=== PATIENT | female | born 1995 | race Caucasian/White ===

== ENCOUNTER 2019-01-22 18:34 | Emergency (ER) | payer SELFPAY ==
[~2019-01-22] VITALS: Ht 177.8 cm; Wt 135.5 kg
[2019-01-22] MEDS ORDERED: LACTATED RINGERS 1,000 ML IV ONE (19:24)
[2019-01-22] MEDS ORDERED: hydrALAZINE (APESOLINE) 20 MG/ML VIAL IV ONE ×2 (19:30→19:45)
[2019-01-22] MEDS ORDERED: meTOprolol TARTRATE 50 MG (LOPRESSOR) TAB PO ONE (19:30)
[2019-01-22 19:35] LABS: BASOPHILS # (AUTO) 0.1 10^3/uL (0.0-0.1); BASOPHILS % (AUTO) 1 % (0-10); EOSINOPHILS # (AUTO) 0.1 10^3/uL (0.0-0.3); EOSINOPHILS % (AUTO) 1 % (0-10); HEMATOCRIT 43 % (35-52); HEMOGLOBIN 14.1 G/DL (11.5-16.0); LYMPHOCYTES # (AUTO) 2.8 X 10^3 (1.0-4.0); LYMPHOCYTES % (AUTO) 27 % (12-44); MEAN CORPUSCULAR HEMOGLOBIN 26 PG (25-34); MEAN CORPUSCULAR HGB CONC 33 G/DL (32-36); MEAN CORPUSCULAR VOLUME 79 FL (80-99); MEAN PLATELET VOLUME 10.4 FL (7.4-10.4); MONOCYTES # (AUTO) 0.8 X 10^3 (0.0-1.0); MONOCYTES % (AUTO) 8 % (0-12); NEUTROPHILS # (AUTO) 6.5 X 10^3 (1.8-7.8); NEUTROPHILS % (AUTO) 63 % (42-75); PLATELET COUNT 258 10^3/uL (130-400); RED CELL DISTRIBUTION WIDTH 12.9 % (10.0-14.5); WHITE BLOOD COUNT 10.3 10^3/uL (4.3-11.0)
[2019-01-22 19:36] LABS: BILIRUBIN,URINE NEGATIVE (NEGATIVE); CLARITY,URINE CLEAR; COLOR,URINE YELLOW; GLUCOSE, URINE (UA) NEGATIVE (NEGATIVE); KETONES,URINE NEGATIVE (NEGATIVE); LEUKOCYTE ESTERASE ,URINE NEGATIVE (NEGATIVE); NITRITE,URINE NEGATIVE (NEGATIVE); PROTEIN,URINE NEGATIVE (NEGATIVE)
[2019-01-22] MEDS ORDERED: meTOprolol TARTRATE 25 MG (LOPRESSOR) TABLET ONE (19:38)
[2019-01-22 19:39] LABS: BACTERIA,URINE FEW /HPF; RBC,URINE 25-50 /HPF; WBC,URINE 0-2 /HPF
--- NOTE | 2019-01-22 19:40 | ED General ---
General Chief Complaint: Dizziness/Syncope Stated Complaint: WEAKNESS, DIZZINESS Nursing Triage Note: Patient states that she has been ahving dry mouth for about a week and dizziness for the last couple of days. Patient states that it feels like she is "drunk". Nursing Sepsis Screen: No Definite Risk Source of Information: Patient Exam Limitations: No Limitations History of Present Illness Date Seen by Provider: Jan 22, 2019 Time Seen by Provider: 19:19 Initial Comments Here with report of feeling dizzy with dry mouth for the last couple of days. States that she feels off like she is drunk but she does not drink. Reports increased fluid intake and increased urination. She is worried about diabetes as that runs in her family. Has had history of high blood pressure in the past and was on medicines but they stopped that about a year ago when she was getting too low on her blood pressure. Denies nausea, vomiting, chest pain or breathing problems. Denies upper respiratory infection or dysuria. Timing/Duration: 1 Week, Getting Worse Severity: Moderate Associated Systoms: No Chest Pain, No Cough, No Diaphoresis, No Fever/Chills, No Nausea/Vomiting, No Shortness of Air Allergies and Home Medications Allergies Coded Allergies: aspirin (Verified Allergy, Unknown, 01/22/19) Patient Home Medication List Home Medication List Reviewed: Yes Review of Systems Review of Systems Constitutional: see HPI; No chills, No fever EENTM: no symptoms reported Respiratory: No cough, No short of breath Cardiovascular: No chest pain, No edema Gastrointestinal: No abdominal pain, No nausea, No vomiting Genitourinary: No dysuria; frequency; No pain Musculoskeletal: no symptoms reported Skin: no symptoms reported Psychiatric/Neurological: No Symptoms Reported All Other Systems Reviewed Negative Unless Noted: Yes Past Kvdonjn-Lydmdb-Lhfjsf Hx Past Med/Social Hx: Reviewed Nursing Past Med/Soc Hx Patient Social History Alcohol Use: Denies Use Recreational Drug Use: No Smoking Status: Never a Smoker Recent Foreign Travel: No Contact w/Someone Who Travel: No Recent Infectious Disease Expo: No Recent Hopitalizations: No Physical Abuse: No Sexual Abuse: No Mistreated: No Fear: No Seasonal Allergies Seasonal Allergies: No Past Medical History Surgeries: No Respiratory: No Cardiac: Yes Hypertension Neurological: Yes Headaches /Migraines Genitourinary: No Gastrointestinal: No Musculoskeletal: No Endocrine: No HEENT: No Cancer: No Psychosocial: No Integumentary: No Family Medical History Reviewed Nursing Family Hx Diabetes Physical Exam Vital Signs Vital Signs - First Documented 01/22/19 18:42 Temp 36.6 Pulse 103 Resp 22 B/P (MAP) 173/132 (146) Pulse Ox 98 O2 Delivery Room Air Capillary Refill : Less Than 3 Seconds Height, Weight, BMI Height: '" Weight: lbs. oz. kg; 42.00 BMI Method: General Appearance: No Apparent Distress, WD/WN HEENT: PERRL/EOMI, Pharynx Normal Neck: Non Tender, Supple Respiratory: Lungs Clear, Normal Breath Sounds Cardiovascular: No Murmur, Tachycardia Gastrointestinal: Non Tender, Soft Back: Normal Inspection, No CVA Tenderness, No Vertebral Tenderness Extremity: Normal Inspection, Normal Range of Motion, Non Tender, No Calf Tenderness Neurologic/Psychiatric: Alert, Oriented x3, No Motor/Sensory Deficits Skin: Normal Color, Warm/Dry Progress/Results/Core Measures Suspected Sepsis Recent Fever Within 48 Hours: No Infection Criteria Present: None New/Unexplained Altered Menta: No Sepsis Screen: No Definite Risk SIRS Temperature: Pulse: 103 Respiratory Rate: 22 Laboratory Tests 01/22/19 19:05: White Blood Count 10.3 Blood Pressure 173 /132 Mean: 146 Laboratory Tests 01/22/19 19:05: Creatinine 0.81, Platelet Count 258, Total Bilirubin 0.2 Results/Orders Lab Results Laboratory Tests Test 01/22/19 18:46 01/22/19 19:05 Range/Units Urine Color YELLOW Urine Clarity CLEAR Urine pH 6.0 5-9 Urine Specific [place] 1.020 1.016-1.022 Urine Protein NEGATIVE NEGATIVE Urine Glucose (UA) NEGATIVE NEGATIVE Urine Ketones NEGATIVE NEGATIVE Urine Nitrite NEGATIVE NEGATIVE Urine Bilirubin NEGATIVE NEGATIVE Urine Urobilinogen 0.2 < = 1.0 MG/DL Urine Leukocyte Esterase NEGATIVE NEGATIVE Urine RBC (Auto) 2+ H NEGATIVE Urine RBC 25-50 H /HPF Urine WBC 0-2 /HPF Urine Squamous Epithelial Cells 10-25 H /HPF Urine Crystals NONE /LPF Urine Bacteria FEW H /HPF Urine Casts NONE /LPF Urine Mucus SMALL H /LPF Urine Culture Indicated NO White Blood Count 10.3 4.3-11.0 10^3/uL Red Blood Count 5.44 4.35-5.85 10^6/uL Hemoglobin 14.1 11.5-16.0 G/DL Hematocrit 43 35-52 % Mean Corpuscular Volume 79 L 80-99 FL Mean Corpuscular Hemoglobin 26 25-34 PG Mean Corpuscular Hemoglobin Concent 33 32-36 G/DL Red Cell Distribution Width 12.9 10.0-14.5 % Platelet Count 258 130-400 10^3/uL Mean Platelet Volume 10.4 7.4-10.4 FL Neutrophils (%) (Auto) 63 42-75 % Lymphocytes (%) (Auto) 27 12-44 % Monocytes (%) (Auto) 8 0-12 % Eosinophils (%) (Auto) 1 0-10 % Basophils (%) (Auto) 1 0-10 % Neutrophils # (Auto) 6.5 1.8-7.8 X 10^3 Lymphocytes # (Auto) 2.8 1.0-4.0 X 10^3 Monocytes # (Auto) 0.8 0.0-1.0 X 10^3 Eosinophils # (Auto) 0.1 0.0-0.3 10^3/uL Basophils # (Auto) 0.1 0.0-0.1 10^3/uL Sodium Level 140 135-145 MMOL/L Potassium Level 3.8 3.6-5.0 MMOL/L Chloride Level 102 98-107 MMOL/L Carbon Dioxide Level 26 21-32 MMOL/L Anion Gap 12 5-14 MMOL/L Blood Urea Nitrogen 11 7-18 MG/DL Creatinine 0.81 0.60-1.30 MG/DL Estimat Glomerular Filtration Rate > 60 BUN/Creatinine Ratio 14 Glucose Level 103 70-105 MG/DL Calcium Level 9.4 8.5-10.1 MG/DL Corrected Calcium 9.1 8.5-10.1 MG/DL Magnesium Level 1.8 1.6-2.4 MG/DL Total Bilirubin 0.2 0.1-1.0 MG/DL Aspartate Amino Transf (AST/SGOT) 21 5-34 U/L Alanine Aminotransferase (ALT/SGPT) 20 0-55 U/L Alkaline Phosphatase 53 40-136 U/L Total Protein 7.7 6.4-8.2 GM/DL Albumin 4.4 3.2-4.5 GM/DL My Orders Orders - SHADI CARRERA MD Cbc With Automated Diff (01/22/19 19:24) Comprehensive Metabolic Panel (01/22/19 19:24) Magnesium (01/22/19 19:24) Ua Culture If Indicated (01/22/19 19:24) Ed Iv/Invasive Line Start (01/22/19 19:24) Ekg Tracing (01/22/19 19:24) Urine Bedside (01/22/19 19:24) Lactated Ringers (Lr 1000 Ml Iv Solution (01/22/19 19:24) Metoprolol Tartrate (Ir) Tab (Lopressor (01/22/19 19:45) Metoprolol Tartrate (Ir) Tab (Lopressor (01/22/19 19:38) Hydralazine Injection (Apresoline Inject (01/22/19 19:45) Acetaminophen Tablet (Tylenol Tablet) (01/22/19 20:49) Medications Given in ED Current Medications Medications Dose Ordered Sig/Mendel Route Start Time Stop Time Status Last Admin Dose Admin Hydralazine HCl 10 mg ONCE ONCE IV 01/22/19 19:45 01/22/19 19:46 DC 01/22/19 19:46 10 MG Lactated Ringer's 1,000 ml @ 0 mls/hr Q0M ONCE IV 01/22/19 19:24 01/22/19 19:27 DC 01/22/19 19:43 999 MLS/HR Metoprolol Tartrate 50 mg ONCE ONCE PO 01/22/19 19:45 01/22/19 19:46 DC 01/22/19 19:43 50 MG Vital Signs/I&O 01/22/19 18:42 Temp 36.6 Pulse 103 Resp 22 B/P (MAP) 173/132 (146) Pulse Ox 98 O2 Delivery Room Air Capillary Refill : Less Than 3 Seconds Blood Pressure Mean: 146 POS Progress Note : Progress Note Seen and evaluated. IV, labs, EKG, UA and UCG ordered. Metoprolol 50 mg by mouth ordered. Hydralazine 10 mg IV and LR 1 L bolus. Monitor patient. 2044: Heart rate has declined to the 80s. Blood pressure is trending down. Patient no longer has the dizzy feeling. She does have mild headache. Tylenol 1 g by mouth given. Monitor patient. ECG Initial ECG Impression Date: Jan 22, 2019 Initial ECG Impression Time: 19:29 Initial ECG Rate: 94 Initial ECG Rhythm: Normal Sinus Initial ECG Comparisson: No Previous ECG Available Comment Sinus rhythm with left atrial abdomen mildly. No evidence of ST elevation [place]. No previous available for comparison. Interpreted by me. Departure Impression Primary Impression: Uncontrolled hypertension Disposition: HOME, SELF-CARE Condition: Improved Departure-Patient Inst. Decision time for Depature: 21:15 Referrals: [facility] (PCP) Primary Care Physician RAFAEL ZABALA (Family) Primary Care Physician Patient Instructions: High Blood Pressure (DC) Add. Discharge Instructions: All discharge instructions reviewed with patient and/or family. Voiced understanding. Take medications as directed. Follow up with your doctor on Saturday or Saturday for recheck and further evaluation. Return for worse pain, fever, vomiting, weakness, breathing problems or other concerns as needed. Scripts Metoprolol Tartrate (Metoprolol Tartrate) 50 Mg Tablet 50 MG PO BID, #30 TAB 0 Refills Prov: SHADI CARRERA MD 01/22/19 SHADI CARRERA MD Jan 22, 2019 19:40 POS
[2019-01-22] MEDS ORDERED: meTOprolol TARTRATE 25 MG (LOPRESSOR) TABLET PO ONE (19:45)
[2019-01-22 19:48] LABS: BUN/CREATININE RATIO 14; CALCIUM 9.4 MG/DL (8.5-10.1); CARBON DIOXIDE 26 MMOL/L (21-32); CHLORIDE 102 MMOL/L (98-107); CREATININE SERUM 0.81 MG/DL (0.60-1.30); GFR ESTIMATED > 60; GLUCOSE 103 MG/DL (70-105); POTASSIUM 3.8 MMOL/L (3.6-5.0); SODIUM 140 MMOL/L (135-145)
[2019-01-22 19:49] LABS: ALANINE AMINOTRANSFERASE 20 U/L (0-55); ALBUMIN 4.4 GM/DL (3.2-4.5); ALKALINE PHOSPHATASE 53 U/L (40-136); BILIRUBIN,TOTAL 0.2 MG/DL (0.1-1.0); MAGNESIUM 1.8 MG/DL (1.6-2.4); TOTAL PROTEIN 7.7 GM/DL (6.4-8.2)
[2019-01-22] MEDS ORDERED: ACETAMINOPHEN 500 MG TAB (TYLENOL) PO STA (20:49)
[2019-01-22] MEDS ORDERED: METO50TA15 PO (21:21)
[2019-01-22 21:29] VITALS: BP 144/91
== END 2019-01-22 21:29 | disposition home or self-care (01) ==
LOC: ER FS 18:36
DX: I10 Essential (primary) hypertension (principal); G43.909 Migraine, unspecified, not intractable, without status migrainosus; Z79.82 Long term (current) use of aspirin
CPT/HCPCS: 36415; 80053; 81000; 83735; 84703; 85025; 93005